=== PATIENT | male | born 1990 | race Caucasian/White ===

== ENCOUNTER 2022-09-10 20:23 | Emergency (ER) | payer SELFPAY ==
[2022-09-10 20:26] VITALS: BP 108/91; PULSE 75; RESP 18; TEMP 36.9; O2SAT 100
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
[2022-09-10] MEDS: Ibuprofen 800 MG TAB PO (21:26)
[2022-09-10] MEDS: Acetaminophen 500 MG TAB 1000 MG PO (21:26)
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
[2022-09-10 22:29] VITALS: BP 108/91; PULSE 75; RESP 18; O2SAT 100
== END 2022-09-10 22:29 | disposition home or self-care (01) ==
PROVIDERS: Emergency Provider Student in an Organized Health Care Education/Training Program; PCP Nurse Practitioner Adult Health
DX: S82.832A Other fracture of upper and lower end of left fibula, initial encounter for closed fracture (principal); V18.0XXA Pedal cycle driver injured in noncollision transport accident in nontraffic accident, initial encounter; Y93.55 Activity, bike riding; F17.210 Nicotine dependence, cigarettes, uncomplicated; F17.290 Nicotine dependence, other tobacco product, uncomplicated
CPT/HCPCS: 99283; 73610

== ENCOUNTER 2022-09-18 10:32 | Outpatient (CLI) | payer SELFPAY ==
--- NOTE | 2022-09-18 10:40 | DI.RAD_ITS ---
Exam(s) XR ANKLE LT COMPLETE EXAM: XR ANKLE LT COMPLETE CLINICAL HISTORY: LEFT ANKLE F/U. TECHNIQUE: 2D digital imaging was performed. COMPARISON: Prior x-rays 09/10/2022 FINDINGS: 3 views Previously described oblique fracture of distal fibula at the level the ankle mortise is again noted, appearing unchanged. Mild displacement. No other fractures identified in the talar dome appears un remarkable. On the frontal view there appears to be slight widening of the medial aspect of the ankle joint. IMPRESSION: Unchanged appearance of the fracture site in the distal fibula. Slight widening of the ankle mortise noted on the AP view. DATA REPOSITORY: RADIATION DOSE DELIVERED:
== END 2022-09-18 10:33 | disposition home or self-care (01) ==
LOC: DIORS 10:32
PROVIDERS: PCP Nurse Practitioner Adult Health; Referring Provider Nurse Practitioner Adult Health; Visit Provider Student in an Organized Health Care Education/Training Program
DX: S82.62XD Displaced fracture of lateral malleolus of left fibula, subsequent encounter for closed fracture with routine healing (principal); X58.XXXD Exposure to other specified factors, subsequent encounter; V18.0XXD Pedal cycle driver injured in noncollision transport accident in nontraffic accident, subsequent encounter
CPT/HCPCS: 73610

== ENCOUNTER 2022-10-09 11:16 | Outpatient (CLI) | payer SELFPAY ==
--- NOTE | 2022-10-09 11:00 | DI.RAD_ITS ---
Exam(s) XR ANKLE LT COMPLETE EXAM: XR ANKLE LT COMPLETE CLINICAL HISTORY: left ankle f/u TECHNIQUE: 2D digital imaging was performed of the left ankle. Three images were obtained. AP, lat eral and oblique views were obtained. COMPARISON: CR XR ANKLE LT COMPLETE from 09/18/2022 FINDINGS: BONES: There has been no change in alignment of the mildly displaced distal fibular fracture. No bon y destructive lesion is seen. JOINTS:The alignment of the ankle mortise is unchanged. SOFT TISSUE: Normal. IMPRESSION: Stable ankle fracture. DATA REPOSITORY: RADIATION DOSE DELIVERED:
== END 2022-10-09 11:17 | disposition home or self-care (01) ==
LOC: DIORS 11:17
PROVIDERS: PCP Nurse Practitioner Adult Health; Referring Provider Nurse Practitioner Adult Health; Visit Provider Student in an Organized Health Care Education/Training Program
DX: S82.832D Other fracture of upper and lower end of left fibula, subsequent encounter for closed fracture with routine healing (principal); X58.XXXD Exposure to other specified factors, subsequent encounter
CPT/HCPCS: 73610

== ENCOUNTER 2022-11-06 10:52 | Outpatient (CLI) | payer SELFPAY ==
--- NOTE | 2022-11-06 11:02 | DI.RAD_ITS ---
Exam(s) XR ANKLE LT COMPLETE EXAM: XR ANKLE LT COMPLETE CLINICAL HISTORY: f/u left distal fib fracture TECHNIQUE: 2D digital imaging was performed of the left ankle. Three images were obtained. AP, lat eral and oblique views were obtained. COMPARISON: CR XR ANKLE LT COMPLETE from 10/09/2022 FINDINGS: BONES: There has been no change in alignment of the distal fibular fracture. No new fracture is iden tified. No bony destructive lesion is seen. JOINTS:The ankle mortise is normally aligned. SOFT TISSUE: Normal. IMPRESSION: Stable distal left fibular fracture. DATA REPOSITORY: RADIATION DOSE DELIVERED:
== END 2022-11-06 10:53 | disposition home or self-care (01) ==
LOC: DIORS 10:52
PROVIDERS: PCP Nurse Practitioner Adult Health; Visit Provider Physician Assistant
DX: S82.832D Other fracture of upper and lower end of left fibula, subsequent encounter for closed fracture with routine healing (principal); X58.XXXD Exposure to other specified factors, subsequent encounter
CPT/HCPCS: 73610

== ENCOUNTER → 2023-05-26 15:33 | Outpatient (CLI) | payer OTHER, SELFPAY ==
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
== END ==
PROVIDERS: PCP Nurse Practitioner Adult Health; Visit Provider Family Medicine
DX: M54.2 Cervicalgia (principal); S13.4XXD Sprain of ligaments of cervical spine, subsequent encounter; W19.XXXD Unspecified fall, subsequent encounter
CPT/HCPCS: 72050